=== PATIENT | male | born 1985 | race Caucasian/White ===

== ENCOUNTER 2022-09-30 20:05 | Emergency (ER) | payer OTHER, SELFPAY ==
[2022-09-30 20:25] VITALS: BP 130/87; PULSE 74; RESP 16; TEMP 37.1; O2SAT 93; BMI 33.9
--- NOTE | 2022-09-30 20:30 | XR_ITS ---
The [address] [address] Patient Name: ALICIA PIRES MRN: [id number] date: 1985 Sex: M Assigned Patient Location: ER Current Patient Location: ER Accession/Order Number: [id number] Exam Date: 09/30/2022 20:30 Report Date: 09/30/2022 20:59 At the request of: AMANDO SELLERS Procedure: XR shoulder RT min 2V Delete that XR shoulder RT min 2V: HISTORY: Right shoulder pain Right shoulder pain COMPARISON: None available. TECHNIQUE: 3 right shoulder views are submitted. FINDINGS: BONES/JOINT SPACES: There is no acute fracture or dislocation. The joint spaces are well-maintained. SOFT TISSUES: The soft tissues are unremarkable. XR/XR shoulder RT min 2V IMPRESSION: Unremarkable plain film examination of the right shoulder. Electronically authenticated by: ZULMA THURMAN Date: 09/30/2022 20:59
--- NOTE | 2022-09-30 20:51 | ED_ITS ---
Documented by User: JANEE Sherman 09/30/22 21:16 HPI - General Adult General Chief complaint: Extremity Injury, Upper Stated complaint: SHOULDER PAIN Time Seen by Provider: 09/30/22 20:23 Source: patient Mode of arrival: walk-in History of Present Illness HPI narrative: patient is a 37-year-old male who presents to the emergency department for the evaluation of right shoulder pain. Pain has been ongoing for over a year but worsened in the last 1-2 months. Patient denies any mechanism of specific injury or trauma. he reports pain over the right glenohumeral joint. He has had some pain radiation to the right arm but no numbness or tingling. Pain is worse with movement of the right arm. he has not had these symptoms evaluated before. No medications prior to arrival. Related Data Home Medications Medication Instructions Recorded Confirmed loratadine .ROUTE 09/30/22 Previous Rx's Medication Instructions Recorded ketorolac 10 mg tablet 10 mg PO TID PRN pain #10 tabs 09/30/22 methocarbamol 750 mg tablet 750 mg PO TID PRN pain #20 tabs 09/30/22 methylprednisolone 4 mg tablets in See Rx Instructions .Route 09/30/22 a dose pack (Medrol (Maximiliano)) .COMPLEX #21 ea Allergies Allergy/AdvReac Type Severity Reaction Status Date / Time No Known Drug Allergies Allergy Verified 09/30/22 20:24 Review of Systems ROS Constitutional Denies: fever or chills Ears, nose, mouth, and throat Denies: throat pain Cardiovascular Denies: chest pain Respiratory Denies: shortness of breath or cough Gastrointestinal Denies: nausea or vomiting Musculoskeletal Denies: back pain or neck pain Integumentary/Breast Denies: rash Neurological Denies: headache PFSH PFS Social History Smoking status: Never smoker Exam Narrative Exam Narrative: Gen.: Awake, alert, in no distress Head: Normocephalic, atraumatic ENT: Moist mucous membranes Respiratory: No respiratory distress Extremities: 2+ right radial pulse, normal biceps tendon strength to flexion and extension at the right elbow, normal abduction of the right shoulder with tenderness and pain at the right glenohumeral joint. No obvious deformity or sulcus sign. No tenderness over the C-spine or scapula of the right shoulder. Psych: Normal mood and affect Neuro: No focal neuro deficit Skin: Warm, dry, intact Constitutional Vital Signs, click to edit/add: Last Vital Signs Temp 98.7 F 09/30/22 20:25 Pulse 74 09/30/22 20:25 Resp 16 09/30/22 20:57 BP 130/87 H 09/30/22 20:25 Pulse Ox 93 L 09/30/22 20:25 O2 Del Method Room Air 09/30/22 20:25 Course Vital Signs Vital signs: Vital Signs Temperature 98.7 F 09/30/22 20:25 Pulse Rate 74 09/30/22 20:25 Respiratory Rate 16 09/30/22 20:25 Blood Pressure 130/87 H 09/30/22 20:25 Pulse Oximetry 93 L 09/30/22 20:25 Oxygen Delivery Method Room Air 09/30/22 20:25 Temperature 98.7 F 09/30/22 20:25 Pulse Rate 74 09/30/22 20:25 Respiratory Rate 16 09/30/22 20:57 Blood Pressure 130/87 H 09/30/22 20:25 Pulse Oximetry 93 L 09/30/22 20:25 Oxygen Delivery Method Room Air 09/30/22 20:25 Medical Decision Making MDM Narrative Medical decision making narrative: right shoulder x-rays unremarkable, reviewed by the radiologist in the patient is discharged home with NSAIDs, muscle relaxants and a Medrol Dosepak. Rest, ice, gentle stretching. Follow-up with orthopedics and return to the Emergency Room if symptoms change or worsen. Medical Records Medical records reviewed: Yes I reviewed the patient's medical records Imaging Data XR shoulder: Attestation: I have reviewed the pertinent imaging results. Radiologist's impression: Procedure: XR shoulder RT min 2V Delete that XR shoulder RT min 2V: HISTORY: Right shoulder pain Right shoulder pain COMPARISON: None available. TECHNIQUE: 3 right shoulder views are submitted. FINDINGS: BONES/JOINT SPACES: There is no acute fracture or dislocation. The joint spaces are well-maintained. SOFT TISSUES: The soft tissues are unremarkable. IMPRESSION: Unremarkable plain film examination of the right shoulder. Electronically authenticated by: ZULMA THURMAN Date: 09/30/2022 20:59 Discharge Plan Discharge Chief Complaint: Extremity Injury, Upper Clinical Impression: Acute pain of right shoulder Patient Disposition: Home, Self-Care Time of Disposition Decision: 20:59 Condition: Good Mode of Transportation: Private Vehicle Prescriptions / Home Meds: New ketorolac 10 mg tablet 10 mg PO TID PRN (Reason: pain) Qty: 10 0RF methylprednisolone [Medrol (Maximiliano)] 4 mg tablets,dose pack See Rx Instructions .ROUTE .COMPLEX Qty: 21 0RF Rx Instructions: Taper as directed methocarbamol 750 mg tablet 750 mg PO TID PRN (Reason: pain) Qty: 20 0RF No Action loratadine .ROUTE Instructions: Shoulder Pain (ED) Additional Instructions: Follow up with orthopedics; [facility] ortho [phone] or [facility] [phone] Stand Alone Forms: Portal Instructions Referrals: [facility] [Primary Care Provider] - 1 week Discharge Date/Time: 09/30/22 21:36 Documented by User: Aisha Bryson MD 09/30/22 21:55 HPI - General Adult General Chief complaint: Extremity Injury, Upper Stated complaint: SHOULDER PAIN Time Seen by Provider: 09/30/22 20:23 Related Data Home Medications Medication Instructions Recorded Confirmed loratadine .ROUTE 09/30/22 Previous Rx's Medication Instructions Recorded ketorolac 10 mg tablet 10 mg PO TID PRN pain #10 tabs 09/30/22 methocarbamol 750 mg tablet 750 mg PO TID PRN pain #20 tabs 09/30/22 methylprednisolone 4 mg tablets in See Rx Instructions .Route 09/30/22 a dose pack (Medrol (Maximiliano)) .COMPLEX #21 ea Allergies Allergy/AdvReac Type Severity Reaction Status Date / Time No Known Drug Allergies Allergy Verified 09/30/22 20:24 PFSH PFSH Social History Smoking status: Never smoker Exam Constitutional Vital Signs, click to edit/add: Last Vital Signs Temp 98.7 F 09/30/22 20:25 Pulse 74 09/30/22 20:25 Resp 16 09/30/22 20:57 BP 130/87 H 09/30/22 20:25 Pulse Ox 93 L 09/30/22 20:25 O2 Del Method Room Air 09/30/22 20:25 Course Vital Signs Vital signs: Vital Signs Temperature 98.7 F 09/30/22 20:25 Pulse Rate 74 09/30/22 20:25 Respiratory Rate 16 09/30/22 20:25 Blood Pressure 130/87 H 09/30/22 20:25 Pulse Oximetry 93 L 09/30/22 20:25 Oxygen Delivery Method Room Air 09/30/22 20:25 Temperature 98.7 F 09/30/22 20:25 Pulse Rate 74 09/30/22 20:25 Respiratory Rate 16 09/30/22 20:57 Blood Pressure 130/87 H 09/30/22 20:25 Pulse Oximetry 93 L 09/30/22 20:25 Oxygen Delivery Method Room Air 09/30/22 20:25 Medical Decision Making MDM Narrative Medical decision making narrative: right shoulder x-rays unremarkable, reviewed by the radiologist in the patient is discharged home with NSAIDs, muscle relaxants and a Medrol Dosepak. Rest, ice, gentle stretching. Follow-up with orthopedics and return to the Emergency Room if symptoms change or worsen. Attending physician attestation I have reviewed the mid-level documentation, agree with the documentation, medical decision making and treatment plan as outlined by the mid-level provider. Discharge Plan Discharge Chief Complaint: Extremity Injury, Upper Clinical Impression: Acute pain of right shoulder Patient Disposition: Home, Self-Care Time of Disposition Decision: 20:59 Condition: Good Mode of Transportation: Private Vehicle Prescriptions / Home Meds: New ketorolac 10 mg tablet 10 mg PO TID PRN (Reason: pain) Qty: 10 0RF methylprednisolone [Medrol (Maximiliano)] 4 mg tablets,dose pack See Rx Instructions .ROUTE .COMPLEX Qty: 21 0RF Rx Instructions: Taper as directed methocarbamol 750 mg tablet 750 mg PO TID PRN (Reason: pain) Qty: 20 0RF No Action loratadine .ROUTE Instructions: Shoulder Pain (ED) Additional Instructions: Follow up with orthopedics; [facility] ortho [phone] or [facility] [phone] Stand Alone Forms: Portal Instructions Referrals: [facility] [Primary Care Provider] - 1 week Discharge Date/Time: 09/30/22 21:36
[2022-09-30 20:57] VITALS: RESP 16
[2022-09-30] MEDS: PREDNISONE 20 MG TABLET 60 MG PO (21:27)
[2022-09-30] MEDS: ORPHENADRINE 60 MG/ 2 ML VIAL IM (21:28)
[2022-09-30] MEDS: KETOROLAC TROMETHAMINE 10 MG TABLET PO (21:28)
== END 2022-09-30 21:36 | disposition home or self-care (01) ==
PROVIDERS: Emergency Provider Emergency Medicine
DX: M25.511 Pain in right shoulder (principal); Z79.899 Other long term (current) drug therapy
CPT/HCPCS: 73030; 96372; 99284

== ENCOUNTER 2024-07-10 13:06 | Emergency (ER) | payer OTHER, SELFPAY ==
[2024-07-10 13:09] VITALS: BP 130/90; PULSE 94; TEMP 37.1; O2SAT 99; BMI 35.5
[2024-07-10] MEDS: ONDANSETRON 4 MG RAPDIS TABLET SL (13:49)
--- NOTE | 2024-07-10 13:53 | ED_ITS ---
HPI - Nausea/Vomiting/Diarrhea General Chief complaint: Nausea/Vomiting/Diarrhea Stated complaint: VOMITING, DIARRHEA Time Seen by Provider: 07/10/24 13:29 Mode of arrival: walk-in History of Present Illness HPI Narrative: The patient presented to us with nausea and vomiting that started this morning after he had diarrhea after midnight. Patient mentioned that he went to sleep after dinner and apparently started having diarrhea since midnight Few hours ago he started having some nausea and vomiting he denies any abdominal pain He does have some chills and a generalized body ache Related Data Home Medications ?Medication ?Instructions ?Recorded ?Confirmed loratadine .ROUTE 09/30/22 Previous Rx's ?Medication ?Instructions ?Recorded ketorolac 10 mg tablet 10 mg PO TID PRN pain #10 ta bs 09/30/22 methocarbamol 750 mg tablet 750 mg PO TID PRN pain #20 tabs 09/30/22 methylprednisolone 4 mg tablets in See Rx Instructions .Route 09/30/22 a dose pack (Medrol (Maximiliano)) .COMPLEX #21 ea famotidine 20 mg tablet (Pepcid) 20 mg PO BID #20 tabs 07/10/24 ondansetron 4 mg disintegrating 4 mg PO Q8H PRN nausea and 07/10/24 tablet vomiting 48 hours #10 tabs Allergies Allergy/AdvReac Type Severity Reaction Status Date / Time No Known Drug Allergies Allergy Verified 09/30/22 20:24 Review of Systems ROS Status of ROS 10 or more systems reviewed and unremark able except as noted in history and below PFSH PFSH Social History Smoking status: Never smoker Little interest or pleasure in doing things: not at all Feeling down, depressed, or hopeless: not at all Exam Narrative Exam Narrative: Nurses notes and vital signs reviewed and patient is not hypoxic. General: Well-appearing and in no apparent distress. Skin: Warm, dry, no pallor noted. No rash. Head: Normocephalic, atraumatic. Neck: Supple, non-tender. Cardiovascular: Regular Rate and Rhythm without murmur, gallop or rub. Respiratory: No accessory muscle use or respiratory distress. Lungs are clear to auscultation, no wheezing, rales or rhonchi Chest Wall: no tenderness Back: No midline thoracic or lumbar vertebral tenderness. No CVA tenderness Musculoskeletal: normal ROM, no calf or popliteal tenderness, no lower extremity edema/swelling GI: Abdomen is soft, non-distended. Normal bowel sounds. No masses appreciated. No tenderness to palpation. No rebound, guarding, or rigidity noted. Neurological: A&O x4. No cranial nerve dysfunction observed. Constitutional Vital Signs, click to edit/add: Last Vital Signs Temp 98.7 F 07/10/24 13:09 Pulse 97 H 07/10/24 15:06 Resp 18 07/10/24 15:06 BP 151/87 H 07/10/24 15:06 Pulse Ox 95 07/10/24 15:06 O2 Del Method Room Air 07/10/24 15:06 Course Vital Signs Vital signs: Vital Signs Temperature 98.7 F 07/10/24 13:09 Pulse Rate 94 H 07/10/24 13:09 Respiratory Rate 18 07/10/24 13:09 Blood Pressure 130/90 07/10/24 13:09 Pulse Oximetry 99 07/10/24 13:09 Oxygen Delivery Method Room Air 07/10/24 13:09 Temperature 98.7 F 07/10/24 13:09 Pulse Rate 97 H 07/10/24 15:06 Respiratory Rate 18 07/10/24 15:06 Blood Pressure 151/87 H 07/10/24 15:06 Pulse Oximetry 95 07/10/24 15:06 Oxygen Delivery Method Room Air 07/10/24 15:06 MDM - Nausea/Vomiting/Diarrhea MDM Narrative Medical decision making narrative: The patient presented to us with a possible gastroenteritis Patient provided with a Zofran after which he was able to tolerate p.o. intake Discharged home with Zofran and Pepcid instructed about hydration The plan right now is hydration and rest The patient is to follow up with primary care physician in next 2-3 days or to return to the emergency department should any of the signs or symptoms worsen or new symptoms develop. The patient agrees with the following Diagnosis and Treatment plan and the patient will be discharged home. Discharge Plan Discharge Chief Complaint: Nausea/Vomiting/Diarrhea Clinical Impression: Gastroenteritis Patient Disposition: Home, Self-Care Time of Disposition Decision: 13:54 Condition: Good Prescriptions / Home Meds: New famotidine [Pepcid] 20 mg tablet 20 mg PO BID Qty: 20 0RF ondansetron 4 mg tablet,disintegrating 4 mg PO Q8H PRN (Reason: nausea and vomiting) 2 Days Qty: 10 0RF No Action loratadine .ROUTE ketorolac 10 mg tablet 10 mg PO TID PRN (Reason: pain) Qty: 10 0RF methylprednisolone [Medrol (Maximiliano)] 4 mg tablets,dose pack See Rx Instructions .ROUTE .COMPLEX Qty: 21 0RF Rx Instructions: Taper as directed methocarbamol 750 mg tablet 750 mg PO TID PRN (Reason: pain) Qty: 20 0RF Print Language: Albanian Instructions: Gastroenteritis (DC), Acute Nausea and Vomiting (DC) Referrals: [facility] [Primary Care Provider, Unknown] - 1 week Discharge Date/Time: 07/10/24 15:07
[2024-07-10 15:06] VITALS: BP 151/87; PULSE 97; O2SAT 95
== END 2024-07-10 15:07 | disposition home or self-care (01) ==
PROVIDERS: Emergency Provider Emergency Medicine
DX: K52.9 Noninfective gastroenteritis and colitis, unspecified (principal)
CPT/HCPCS: 99283; Q0162